=== PATIENT | female | born 1990 | race American Indian/Alaskan Native ===

== ENCOUNTER 2017-10-17 04:59 | Outpatient (CLI) | payer BC | END 2017-10-17 23:59 | disposition home or self-care (01) | LOC: DIABETIC 04:59 | PROVIDERS: ATTEND Surgery | DX: E66.01 Morbid (severe) obesity due to excess calories (principal); M19.90 Unspecified osteoarthritis, unspecified site; M54.5 Low back pain | CPT/HCPCS: 97802 ==

== ENCOUNTER 2017-11-07 02:51 | Outpatient (CLI) | payer BC | END 2017-11-07 23:59 | disposition home or self-care (01) | LOC: DIABETIC 02:51 | PROVIDERS: ATTEND Surgery | DX: E66.01 Morbid (severe) obesity due to excess calories (principal); M19.90 Unspecified osteoarthritis, unspecified site; M54.5 Low back pain | CPT/HCPCS: 97802 ==

== ENCOUNTER 2017-12-07 04:09 | Outpatient (CLI) | payer BC | END 2017-12-07 23:59 | disposition home or self-care (01) | LOC: DIABETIC 04:09 | PROVIDERS: ATTEND Surgery | DX: E66.01 Morbid (severe) obesity due to excess calories (principal); M19.90 Unspecified osteoarthritis, unspecified site; M54.5 Low back pain | CPT/HCPCS: 97802 ==

== ENCOUNTER 2018-01-09 00:18 | Outpatient (CLI) | payer BC | END 2018-01-09 23:59 | disposition home or self-care (01) | LOC: DIABETIC 00:18 | PROVIDERS: ATTEND Surgery | DX: E66.01 Morbid (severe) obesity due to excess calories (principal); M19.90 Unspecified osteoarthritis, unspecified site; M54.5 Low back pain | CPT/HCPCS: 97802 ==

== ENCOUNTER 2019-06-18 03:25 | Emergency (ER) | payer BC ==
[~2019-06-18] VITALS: Ht 167.6 cm; Wt 78.2 kg
--- NOTE | 2019-06-18 03:39 | NUR ---
Patient A&O x3, MAN and is appropriate. She is complaining of right abdominal pain 9/10 that radiates to her back.
[2019-06-18 04:08] LABS: URINE HCG NEGATIVE (NEG)
[2019-06-18 04:21] LABS: CLARITY,URINE SLIGHTLY CLOUDY (Clear); COLOR,URINE YELLOW (Yellow); GLUCOSE, URINE NEGATIVE (Neg); KETONES,URINE NEGATIVE (Neg); LEUKOCYTE ESTERASE ,URINE TRACE (Neg); NITRITES, URINE NEGATIVE (Neg); OCCULT BLOOD,URINE NEGATIVE (Neg); PROTEIN,URINE NEGATIVE (Neg); UROBILINOGEN,URINE 0.2 E.U/dL (0.2-1.0)
[2019-06-18 04:22] LABS: ALANINE AMINOTRANSFERASE 27 U/L (12-78); ALBUMIN 3.1 G/DL (3.4-5.0); ALBUMIN/GLOBULIN RATIO 0.8 (1.1-1.5); ALKALINE PHOSPHATASE 74 IU/L (46-116); ANION GAP 11 (8-16); ASPARTATE AMINO TRANSFERASE 13 U/L (10-37); BILIRUBIN,TOTAL 0.4 MG/DL (0.1-1.0); BLOOD UREA NITROGEN 12 MG/DL (7-18); BUN/CREATININE RATIO 12.6 (6.6-38.0); CALCIUM 8.9 MG/DL (8.5-10.1); CHLORIDE 105 MMOL/L (99-107); CREATININE 0.95 MG/DL (0.40-0.90); GLUCOSE 96 MG/DL (70-104); SODIUM 140 MMOL/L (135-145); TOTAL CARBON DIOXIDE 23.8 MMOL/L (24-32); TOTAL PROTEIN 6.9 G/DL (6.4-8.2); eGFR 69 ML/MIN
[2019-06-18 04:27] LABS: UA COLLECTION TYPE CLN CATCH MIDSTREAM
[2019-06-18 04:31] LABS: BACTERIA,URINE 2+ /HPF (Neg); MUCUS STRANDS MODERATE /LPF (Neg); RBC,URINE NONE SEEN /HPF (0-2); SQUAMOUS EPITHELIAL CELL,UR MANY /LPF (FEW)
[2019-06-18 04:32] LABS: WBC CLUMPS,URINE FEW /HPF (NEGATIVE)
[2019-06-18 04:42] LABS: ETHANOL < 0.010 GM/DL (0.0-0.010); LIPASE 102 U/L (73-393); MAGNESIUM 1.7 MG/DL (1.5-2.4)
[2019-06-18 04:44] LABS: BASOPHILS % (AUTO) 0.3 % (0-1); EOSINOPHILS # (AUTO) 0.2 X10'3 (0-0.9); EOSINOPHILS % (AUTO) 1.6 % (0-6); HEMATOCRIT 41.1 % (35.0-45.0); HEMOGLOBIN 13.8 g/dl (12.0-16.0); LYMPHOCYTES # (AUTO) 2.3 X10'3 (1.1-4.8); LYMPHOCYTES % (AUTO) 21.2 % (21-51); MEAN CORPUSCULAR HGB CONC 33.6 g/dL (33.0-36.5); MEAN CORPUSCULAR VOLUME 83.4 FL (78-98); MEAN PLATELET VOLUME 8.7 FL (7.4-10.4); MONOCYTES # (AUTO) 0.9 X10'3 (0-0.9); MONOCYTES % (AUTO) 8.5 % (2-12); NEUTROPHILS # (AUTO) 7.3 X10'3 (1.8-7.7); NEUTROPHILS % (AUTO) 68.4 % (42-75); PLATELET COUNT 242 X10'3 (140-440); RED BLOOD COUNT 4.92 X10'6 (4.20-5.60); RED CELL DISTRIBUTION WIDTH 13.3 % (11.5-14.5); WHITE BLOOD COUNT 10.6 X10'3 (4.5-11.0)
[2019-06-18 05:35] VITALS: BP 115/74
--- NOTE | 2019-06-18 06:03 | NUR ---
Patient sleeping on gurney, no obvious distress
[2019-06-18] MEDS ORDERED: HYDR-4353 PO (07:01)
[2019-06-18] MEDS ORDERED: ONDA4TAB6 PO (07:01)
[2019-06-18] MEDS ORDERED: morphine 5 MG/ML injection IV ONE (07:05)
[2019-06-18] MEDS ORDERED: morphine 10mg/ml inj. IV ONE (07:35)
[2019-06-18 10:15] LABS: URINE AMPHETAMINE SCREEN POSITIVE (Neg); URINE BARBITUATE SCREEN NEGATIVE (Neg); URINE BENZODIAZEPINES SCREEN NEGATIVE (Neg); URINE CANNABINOID SCREEN NEGATIVE (Neg); URINE COCAINE SCREEN NEGATIVE (Neg); URINE METHADONE SCREEN NEGATIVE (Neg); URINE OPIATE SCREEN NEGATIVE (Neg); URINE PHENCYCLIDINE SCREEN NEGATIVE (Neg)
== END 2019-06-18 07:50 | disposition home or self-care (01) ==
LOC: ER 03:26
DX: K80.20 Calculus of gallbladder without cholecystitis without obstruction (principal); Z88.0 Allergy status to penicillin
CPT/HCPCS: 36415; 76700; 80053; 80305; 80320; 81001; 81025; 83690; 83735; 85025; 85610; 99284; J2270

== ENCOUNTER 2022-03-12 15:14 | Emergency (ER) | payer BC ==
[~2022-03-12] VITALS: Ht 167.6 cm; Wt 90.0 kg
[~2022-03-12 15:14] MED LIST: ONDA4TAB6 PO
[2022-03-12 15:24] VITALS: BP 125/68
[2022-03-12 16:00] LABS: CLARITY,URINE SLIGHTLY CLOUDY (Clear); COLOR,URINE YELLOW (Yellow); GLUCOSE, URINE NEGATIVE (Neg); KETONES,URINE NEGATIVE (Neg); LEUKOCYTE ESTERASE ,URINE NEGATIVE (Neg); NITRITES, URINE POSITIVE (Neg); OCCULT BLOOD,URINE TRACE-INTACT (Neg); PH,URINE 8.5 (4.8-8.0); PROTEIN,URINE NEGATIVE (Neg)
[2022-03-12 16:01] LABS: URINE HCG NEGATIVE (NEG)
[2022-03-12 16:03] LABS: BASOPHILS % (AUTO) 0.2 % (0-1); EOSINOPHILS # (AUTO) 0.1 X10'3 (0-0.9); EOSINOPHILS % (AUTO) 1.7 % (0-6); HEMATOCRIT 39.7 % (35.0-45.0); HEMOGLOBIN 13.4 g/dl (12.0-16.0); LYMPHOCYTES # (AUTO) 0.3 X10'3 (1.1-4.8); MEAN CORPUSCULAR HEMOGLOBIN 26.8 PG (27.0-31.0); MEAN CORPUSCULAR HGB CONC 33.7 g/dL (33.0-36.5); MEAN CORPUSCULAR VOLUME 79.7 FL (78-98); MEAN PLATELET VOLUME 8.5 FL (7.4-10.4); MONOCYTES # (AUTO) 0.4 X10'3 (0-0.9); MONOCYTES % (AUTO) 8.8 % (2-12); NEUTROPHILS # (AUTO) 3.8 X10'3 (1.8-7.7); NEUTROPHILS % (AUTO) 82.3 % (42-75); PLATELET COUNT 230 X10'3 (140-440); RED BLOOD COUNT 4.98 X10'6 (4.20-5.60); RED CELL DISTRIBUTION WIDTH 13.8 % (11.5-14.5); WHITE BLOOD COUNT 4.6 X10'3 (4.5-11.0)
[2022-03-12 16:07] LABS: UA COLLECTION TYPE CLN CATCH MIDSTREAM
[2022-03-12 16:13] LABS: ALANINE AMINOTRANSFERASE 28 U/L (12-78); ALBUMIN 3.3 G/DL (3.4-5.0); ALBUMIN/GLOBULIN RATIO 0.9 (1.1-1.5); ALKALINE PHOSPHATASE 65 IU/L (46-116); ANION GAP 10 (8-16); ASPARTATE AMINO TRANSFERASE 20 U/L (10-37); BILIRUBIN,TOTAL 0.4 MG/DL (0.1-1.0); BLOOD UREA NITROGEN 7 MG/DL (7-18); BUN/CREATININE RATIO 6.9 (6.6-38.0); CALCIUM 8.6 MG/DL (8.5-10.1); CHLORIDE 103 MMOL/L (99-107); CREATININE 1.02 MG/DL (0.40-0.90); GLUCOSE 85 MG/DL (70-104); LIPASE 57 U/L (73-393); POTASSIUM 3.8 MMOL/L (3.5-5.1); SODIUM 135 MMOL/L (135-145); TOTAL CARBON DIOXIDE 21.7 MMOL/L (24-32); TOTAL PROTEIN 7.1 G/DL (6.4-8.2); eGFR 62 ML/MIN
[2022-03-12 16:29] LABS: SQUAMOUS EPITHELIAL CELL,UR MODERATE /LPF (FEW)
[2022-03-12 16:37] LABS: RBC,URINE 0-2 /HPF (0-2)
[2022-03-12 16:38] LABS: WBC,URINE 0-4 /HPF (0-4)
[2022-03-12 16:40] LABS: MUCUS STRANDS FEW /LPF (Neg)
[2022-03-12 16:42] LABS: BACTERIA,URINE 3+ /HPF (Neg)
== END 2022-03-12 21:30 | disposition left against medical advice (07) ==
LOC: ER 15:15
DX: M54.59 Other low back pain (principal); Z53.21 Procedure and treatment not carried out due to patient leaving prior to being seen by health care provider
CPT/HCPCS: 36415; 80053; 81001; 81025; 83690; 85025; 87077; 87088; 87186